=== PATIENT | female | born 1970 | race American Indian/Alaskan Native ===

== ENCOUNTER 2019-05-21 10:41 | Emergency (ER) | payer BC ==
[2019-05-21 10:53] VITALS: BP 150/75
[2019-05-21 11:26] LABS: Bilirubin,Urine NEG (Negative); Blood,Urine NEG (Negative); Color,Urine Yellow (Yellow); Mucus,Urine FEW /HPF; Protein,Urine <15 mg/dL mg/dL (Negative); Urobilinogen,Urine < 2.0 mg/dL (<2.0); WBC,Urine < 1.0 /HPF (0.0-6.0)
[2019-05-21 11:35] LABS: Basophils % (Auto) 0.6 % (0.0-1.8); Eosinophils # (Auto) 0.1 K/mm3 (0.0-0.4); Eosinophils % (Auto) 2.2 % (0.0-4.3); Hematocrit 41.9 % (30.3-42.9); Hemoglobin 14.1 gm/dl (10.1-14.3); Lymphocytes # (Auto) 2.1 K/mm3 (1.2-5.4); Mean Corpuscular HGB Conc 34 % (30-34); Mean Corpuscular Volume 93 fl (79-97); Monocytes # (Auto) 0.5 K/mm3 (0.0-0.8); Monocytes % (Auto) 10.3 % (0.0-7.3); Platelet Count 209 K/mm3 (140-440); Red Blood Count 4.49 M/mm3 (3.65-5.03); Red Cell Distribution Width 12.8 % (13.2-15.2)
[2019-05-21 11:35] LABS: RBC,Urine < 1.0 /HPF (0.0-6.0)
[2019-05-21 11:50] LABS: Albumin 4.5 g/dL (3.9-5); Calcium 9.8 mg/dL (8.4-10.2)
--- NOTE | 2019-05-21 13:11 | Emergency Department Report ---
ED Abdominal Pain HPI - General Chief Complaint: Abdominal Pain Stated Complaint: ABD PAIN Time Seen by Provider: 05/21/19 12:58 Source: patient Mode of arrival: Ambulatory Limitations: No Limitations - History of Present Illness Initial Comments: 48-year-old female presents to ED with complaint of abdominal pain. Patient states pain has been intermittent times one week, worsening days ago. States pain is primarily in the epigastric region radiating to the right upper quadrant and down to the right lower quadrant. Patient reports nausea, no vomiting. Reports subjective fever and chills. Pain is worse with eating. MD Complaint: abdominal pain -: week(s) (1) Location: epigastric Radiation: RUQ, RLQ Severity: moderate Quality: sharp Consistency: intermittent Improves With: nothing Worsens With: eating Associated Symptoms: nausea, fever, chills. denies: vomiting, diarrhea - Related Data Previous Rx's Medication Instructions Recorded Last Taken Type Dicyclomine [Bentyl] 20 mg PO QID PRN #20 tablet 05/21/19 Unknown Rx Esomeprazole Magnesium [Nexium 20 mg PO QDAY #30 capsule. 05/21/19 Unknown Rx 24Hr] Ondansetron [Zofran Odt] 4 mg PO Q8HR PRN #20 tab.rapdis 05/21/19 Unknown Rx Allergies Allergy/AdvReac Type Severity Reaction Status Date / Time No Known Allergies Allergy Unverified 05/21/19 10:53 ED Review of Systems ROS: Stated complaint: ABD PAIN Other details as noted in HPI Comment: All other systems reviewed and negative Constitutional: chills, fever Gastrointestinal: abdominal pain, nausea. denies: vomiting, diarrhea ED Past Medical Hx - Past Medical History Previous Medical History?: No - Surgical History Past Surgical History?: No - Social History Smoking Status: Never Smoker Substance Use Type: Alcohol - Medications Home Medications: Home Medications Medication Instructions Recorded Confirmed Last Taken Type Dicyclomine [Bentyl] 20 mg PO QID PRN #20 tablet 05/21/19 Unknown Rx Esomeprazole Magnesium [Nexium 20 mg PO QDAY #30 capsule. 05/21/19 Unknown Rx 24Hr] Ondansetron [Zofran Odt] 4 mg PO Q8HR PRN #20 tab.rapdis 05/21/19 Unknown Rx ED Physical Exam - General Limitations: No Limitations General appearance: alert, in no apparent distress - Head Head exam: Present: atraumatic, normocephalic - Eye Eye exam: Present: normal appearance, PERRL, EOMI - ENT ENT exam: Present: mucous membranes moist - Neck Neck exam: Present: normal inspection - Respiratory Respiratory exam: Present: normal lung sounds bilaterally. Absent: respiratory distress - Cardiovascular Cardiovascular Exam: Present: regular rate, normal rhythm - GI/Abdominal GI/Abdominal exam: Present: soft, tenderness (moderate epigastric and RUQ tenderness). Absent: distended - Extremities Exam Extremities exam: Present: normal inspection - Neurological Exam Neurological exam: Present: alert, oriented X3 - Psychiatric Psychiatric exam: Present: normal affect, normal mood - Skin Skin exam: Present: warm, dry, intact, normal color ED Course Vital Signs 05/21/19 10:51 Temperature 98.1 F Pulse Rate 78 Respiratory 16 Rate Blood Pressure 150/75 O2 Sat by Pulse 99 Oximetry ED Medical Decision Making - Lab Data Result diagrams: 05/21/19 11:06 05/21/19 11:06 - Radiology Data Radiology results: report reviewed, image reviewed - Medical Decision Making - epigastric pain x 1 week - nausea, no vomiting - worse w/ eating - no diarrhea, some constipation, but still having bowel movements - labs normal - pt afebrile, not tachyvardic - US unremarkable except for possible right nephrolithiasis, which is likely not the cause of pt's pain - advised GI follow-up - will prescribe zofran, bentyl, nexium - return precautions given - Differential Diagnosis ulcer, pancreatitis, gallstones Critical care attestation.: If time is entered above; I have spent that time in minutes in the direct care of this critically ill patient, excluding procedure time. ED Disposition Clinical Impression: Abdominal pain, acute, epigastric Disposition: DC-01 TO HOME OR SELFCARE Is pt being admited?: No Condition: Stable Instructions: Abdominal Pain (ED) Prescriptions: Dicyclomine [Bentyl] 20 mg PO QID PRN #20 tablet PRN Reason: abdominal pain Esomeprazole Magnesium [Nexium 24Hr] 20 mg PO QDAY #30 capsule. Ondansetron [Zofran Odt] 4 mg PO Q8HR PRN #20 tab.rapdis PRN Reason: Vomiting Referrals: [facility] [Provider Group] - 3-5 Days Time of Disposition: 15:10
--- NOTE | 2019-05-21 14:48 | Ultrasound Report ---
ULTRASOUND ABDOMEN LIMITED: TECHNIQUE: Transabdominal ultrasound with color Doppler interrogation. HISTORY: right upper quadrant abdominal pain. COMPARISON: none. FINDINGS: LIVER: Normal. BILIARY SYSTEM: Normal. PANCREAS: Normal. RIGHT KIDNEY: The right kidney is normal size, contour and position. A few small echogenic foci are identified in the right kidney which could represent tiny renal stones. No hydronephrosis. PROXIMAL AORTA: Normal. ASCITES: None. IMPRESSION: Question right nephrolithiasis. No hydronephrosis. Normal biliary system.
== END 2019-05-21 15:19 | disposition home or self-care (01) ==
LOC: ED 10:41
DX: R10.13 Epigastric pain (principal); R10.11 Right upper quadrant pain
CPT/HCPCS: 36415; 76705; 80053; 81001; 83690; 84703; 85025; 99284